=== PATIENT | female | born 1975 | race Caucasian/White ===

== ENCOUNTER 2022-03-31 05:40 | Emergency (ER) | payer BC ==
[2022-03-31] MEDS ORDERED: Morphine 4 MG/ML VIAL IVPUSH ONE (06:18)
[2022-03-31] MEDS ORDERED: Ondansetron 4 MG/2 ML SDV IVPUSH ONE (06:18)
[2022-03-31] MEDS ORDERED: Lactated Ringers 1,000 ML IV STA (06:18)
[2022-03-31 07:15] LABS: POTASSIUM,K 3.7 mmol/L (3.5-5.1)
== END 2022-03-31 09:21 | disposition home or self-care (01) ==
LOC: MW.ED 05:40
DX: K57.92 Diverticulitis of intestine, part unspecified, without perforation or abscess without bleeding (principal)
CPT/HCPCS: 36415; 74178; 80053; 81001; 81025; 83605; 83735; 84703; 85025; 85610; 87040; 96361; 96374; 96375; 99284; J2270; J2405; J7120